=== PATIENT | female | born 1945 | race African-American/Black ===

== ENCOUNTER → 2016-10-30 | Outpatient (CLI) | payer MEDICARE, BC ==
[2015-03-22 18:30] VITALS: BP 153/81
[~2016-10-30] MED LIST: ACYC400T PO; ATOR10TA60 PO; CELE100C PO; DILT180C2 PO; DILT240C2 PO; GABA-585 PO; HYDR-2869 PO; LOSA1TAB18 PO; MULT-208 PO; NAPR500T3 PO; SENN8.6T99 PO; oscal
--- NOTE | 2016-10-30 14:01 | CARD ---
APPROVED REPORT EXAM: Two-dimensional and M-mode echocardiogram with Doppler and color Doppler. Other Information Quality : Average Rhythm : NSR INDICATION Peripheral Edema Cardiomegaly 2D DIMENSIONS Left Atrium(2D)3.9 (1.6-4.0cm)IVSd1.2 (0.7-1.1cm) Aortic Root(2D)2.9 (2.0-3.7cm)LVDd5.1 (3.9-5.9cm) LVOT Diameter2.1 (1.8-2.4cm)PWd1.3 (0.7-1.1cm) LVDs3.1 (2.5-4.0cm)FS (%) 39.3 % SV84.8 mlLVEF(%)69.5 (>50%) Aortic Valve AoV Peak Austin.146.2cm/sAoV VTI28.8cm AO Peak GR.8.5mmHgLVOT Peak Austin.95.3cm/s LVOT VTI 18.72cmAO Mean GR.4mmHg NILDA (VMAX)1.37fp5MXG (VTI)2.29cm2 Mitral Valve MV E Kimhvmgq37.2cm/sMV DECEL [id number] MV A Evcoemor31.3cm/sMV E Mean Gr.1mmHg MV YBE61qsQ/A Ratio0.6 MV A Baaougpb572emLGP (PHT)2.41cm2 TDI E/Lateral E'6.5E/Medial E'9.5 Pulmonary Valve PV Peak Txpuzobh066.7cm/sPV Peak Grad.4mmHg RVOT VTI17.8cm Tricuspid Valve TR P. Gwwaeejy739wc/sRAP XYNEIYCI9cwFi TR Peak Gr.67arYzCZUU48toUu LEFT VENTRICLE The left ventricle is normal size. There is borderline to mild concentric left ventricular hypertroph y. Left ventricle systolic function is normal. The Ejection Fraction is 65-70%. There is normal LV se gmental wall motion. Tissue Doppler imaging reveals mild left ventricular diastolic dysfunction. RIGHT VENTRICLE The right ventricle is normal size. The right ventricular systolic function is normal. ATRIA The left atrium size is normal. The right atrium size is normal. The interatrial septum is intact wit h no evidence for an atrial septal defect or patent foramen ovale as noted on 2-D or Doppler imaging. AORTIC VALVE The aortic valve is normal in structure and function. The aortic valve is trileaflet. Doppler and Col or Flow revealed no significant aortic regurgitation. There is no significant aortic valvular stenosi s. MITRAL VALVE The mitral valve is normal in structure and function. There is no mitral valve stenosis. Doppler and Color Flow revealed no mitral valve regurgitation noted. TRICUSPID VALVE The tricuspid valve is normal in structure and function. Doppler and Color Flow revealed trace to mil d tricuspid regurgitation. The PA pressure was estimated at 30 mmHg. There is no tricuspid valve sten osis. PULMONIC VALVE The pulmonic valve is not well visualized. Doppler and Color Flow revealed no pulmonic valvular regur gitation. There is no pulmonic valvular stenosis. GREAT VESSELS The aortic root is normal in size. Normal pulmonary venous flow (Doppler). The IVC is normal in size and collapses >50% with inspiration. PERICARDIAL EFFUSION There is no evidence of significant pericardial effusion. Critical Notification Critical Value: No <Conclusion> Left ventricle systolic function is normal. The Ejection Fraction is 65-70%. There is normal LV segmental wall motion. No significant valvular disease.
== END | disposition home or self-care (01) ==
LOC: ECHO 10:59
PROVIDERS: ATTEND Internal Medicine
DX: I51.7 Cardiomegaly (principal)
CPT/HCPCS: 93306

== ENCOUNTER → 2016-11-17 | Outpatient (CLI) | payer MEDICARE, BC ==
[2015-03-22 18:30] VITALS: BP 153/81
--- NOTE | 2016-11-18 09:57 | RAD ---
DATE: 11/17/2016 EXAM: DIGITAL SCREEN BILAT W/CAD HISTORY: Routine screening COMPARISON: 11/08/2015 This study was interpreted with the benefit of Computerized Aided Detection (CAD). FINDINGS: There are scattered fibroglandular densities in both breasts. No new or enlarging breast densities are seen. Minimal benign type calcification is present. No suspicious microcalcifications have developed. Benign-appearing lymph nodes are noted in the left axillary region. IMPRESSION: Stable mammograms without evidence of malignancy. BI-RADS CATEGORY: 2 BENIGN FINDING(S) RECOMMENDED FOLLOW-UP: 12M 12 MONTH FOLLOW-UP PQRS compliance statement: Patient information was entered into a reminder system with a target due date for the next mammogram. Mammography is a sensitive method for finding small breast cancers, but it does not detect them all and is not a substitute for careful clinical examination. A negative mammogram does not negate a clinically suspicious finding and should not result in delay in biopsying a clinically suspicious abnormality. "Our facility is accredited by the [employer] Mammography Program."
== END | disposition home or self-care (01) ==
LOC: MAMMO 13:15
PROVIDERS: ATTEND Internal Medicine
DX: Z12.31 Encounter for screening mammogram for malignant neoplasm of breast (principal)
CPT/HCPCS: G0202; 77067

== ENCOUNTER → 2016-11-18 | Outpatient (CLI) | payer MEDICARE, BC ==
[2015-03-22 18:30] VITALS: BP 153/81
--- NOTE | 2016-11-18 12:14 | RAD ---
Bilateral lower extremity venous ultrasound, 11/18/2016: History: Bilateral leg swelling Duplex evaluation of the deep veins in the lower extremities was performed including grayscale, color-flow and spectral Doppler analysis. The femoral and popliteal veins demonstrate normal compressibility and normal responses to distal augmentation maneuvers. Color imaging of those vessels shows no evidence of intraluminal clot. The deep veins in the calves were not adequately visualized in this large patient. IMPRESSION: There is no sonographic evidence of deep vein thrombosis in either lower extremity.
--- NOTE | 2016-11-18 12:18 | RAD ---
Bilateral lower extremity venous insufficiency ultrasound exam, 11/18/2016: History: Leg swelling Duplex evaluation of the greater and lesser saphenous veins in both lower extremities was performed. The greater and lesser saphenous veins are patent bilaterally. No significant reflux was identified in these vessels. IMPRESSION: No significant abnormality is detected.
== END | disposition home or self-care (01) ==
LOC: US 08:30
PROVIDERS: ATTEND Internal Medicine
DX: M79.89 Other specified soft tissue disorders (principal); M79.604 Pain in right leg; M79.605 Pain in left leg
CPT/HCPCS: 93970

== ENCOUNTER → 2017-05-06 | Outpatient (CLI) | payer MEDICARE, BC ==
[2015-03-22 18:30] VITALS: BP 153/81
--- NOTE | 2017-05-06 16:44 | RAD ---
Lateral lumbar spine with flexion and extension, 3 views, 05/06/2017: History: Spondylolisthesis, left leg numbness Standing lateral views of the lumbar spine were obtained in flexion, neutral and extension. The bony structures are demineralized. The vertebral heights are well-maintained. There are mild scattered marginal spurs. There are moderate degenerative changes involving the facet joints throughout the lumbar spine. There is a grade 1 spondylolisthesis at L4-5. There is approximately 7 to 8 mm of anterior subluxation of L4 relative to L5 which does not appear to change significantly on flexion and extension. There is a lesser degree of spondylolisthesis at L3-4 which also shows no significant instability with flexion and extension. No other abnormality is seen on this limited exam.
== END | disposition home or self-care (01) ==
LOC: RAD 12:19
PROVIDERS: ATTEND Neurological Surgery
DX: M43.16 Spondylolisthesis, lumbar region (principal)
CPT/HCPCS: 72120

== ENCOUNTER 2017-07-31 16:00 | Emergency (ER) | payer MEDICARE, BC ==
[~2017-07-31] VITALS: Ht 167.6 cm; Wt 111.6 kg
[~2017-07-31 16:00] MED LIST changes: -LOSA1TAB18 PO; +LOSA1TAB25 PO; -NAPR500T3 PO; +NAPR500T4 PO
[2017-07-31 16:07] VITALS: BP 152/79
--- NOTE | 2017-07-31 16:39 | PHYS DOC ---
Past Medical History Past Medical History: Arthritis, High Cholesterol, Hypertension, Migraines Past Surgical History: Hysterectomy Alcohol Use: None Drug Use: None Adult General Chief Complaint Chief Complaint: OTHER COMPLAINTS [facility] Patient is a 72 year old presents the ED complaining of tailbone injury times one day. Patient states she was walking in the garage and slipped and fell on her bottom. Describes pain as sharp. Rates pain as 6 out of 10. States pain is worse with sitting. Complains of tailbone pain. Denies bowel/bladder changes or saddle anesthesia, head/neck injury, LOC, vision changes, chest pain, shortness of breath, symptoms prior to fall, nausea/vomiting or fever. Review of Systems Review of Systems Constitutional: Denies fever or chills [] Eyes: Denies change in visual acuity, redness, or eye pain [] HENT: Denies nasal congestion or sore throat [] Respiratory: Denies cough or shortness of breath [] Cardiovascular: No additional information not addressed in HPI [] GI: Denies abdominal pain, nausea, vomiting, bloody stools or diarrhea [] : Denies dysuria or hematuria [] Musculoskeletal: Denies back pain or joint pain. Complains of tailbone pain. [] Integument: Denies rash or skin lesions [] Neurologic: Denies headache, focal weakness or sensory changes [] Endocrine: Denies polyuria or polydipsia [] Allergies Allergies Allergies Coded Allergies Type Severity Reaction Last Updated Verified No Known Drug Allergies 03/22/15 No Physical Exam Physical Exam Constitutional: Well developed, well nourished, no acute distress, non-toxic appearance. [] HENT: Normocephalic, atraumatic, bilateral external ears normal, oropharynx moist, no oral exudates, nose normal. [] Eyes: PERRLA, EOMI, conjunctiva normal, no discharge. [] Neck: Normal range of motion, no tenderness, supple, no stridor. [] Cardiovascular:Heart rate regular rhythm, no murmur [] Lungs & Thorax: Bilateral breath sounds clear to auscultation [] Abdomen: Bowel sounds normal, soft, no tenderness, no masses, no pulsatile masses. [] Skin: Warm, dry, no erythema, no rash. [] Back: No tenderness, no CVA tenderness. MILD TAILBONE TENDERNESS. NO OVERLYING SKIN CHANGES. [] Extremities: No tenderness, no cyanosis, no clubbing, ROM intact, no edema. [] Neurologic: Alert and oriented X 3, normal motor function, normal sensory function, no focal deficits noted. [] Psychologic: Affect normal, judgement normal, mood normal. [] Current Patient Data Vital Signs Vital Signs Date Time Temp Pulse Resp B/P (MAP) Pulse Ox O2 Delivery O2 Flow Rate FiO2 07/31/17 16:07 98.1 76 20 95 Room Air 98.1 EKG EKG [] Radiology/Procedures Radiology/Procedures PROCEDURE: SACRUM & COCCYX 3V Three-view study of the sacrum and coccyx History: Fall and pain. Findings: No acute fracture or displacement or osteolytic process is seen. No diastases of either SI joint is seen. IMPRESSION: No acute fracture.[] Course & Med Decision Making Course & Med Decision Making Pertinent Labs and Imaging studies reviewed. (See chart for details) []X-ray negative for acute injury. Patient's pain improved. Discussed symptomatic treatment. Able to ambulate without pain. Discussed follow-up and reasons to return to the ED. Patient understands and agrees with plan. Dragon Disclaimer Dragon Disclaimer This electronic medical record was generated, in whole or in part, using a voice recognition dictation system. Departure Departure Impression: Primary Impression: Tailbone injury Disposition: 01 HOME, SELF-CARE Condition: IMPROVED Referrals: TETE GALAN MD (PCP) Patient Instructions: Tailbone Injury MARJORIE BHATTI Jul 31, 2017 16:39
--- NOTE | 2017-07-31 17:10 | RAD ---
Three-view study of the sacrum and coccyx History: Fall and pain. Findings: No acute fracture or displacement or osteolytic process is seen. No diastases of either SI joint is seen. IMPRESSION: No acute fracture.
== END 2017-07-31 17:18 | disposition home or self-care (01) ==
LOC: ER 16:00
DX: S39.92XA Unspecified injury of lower back, initial encounter (principal); I10 Essential (primary) hypertension; E78.00 Pure hypercholesterolemia, unspecified; G43.909 Migraine, unspecified, not intractable, without status migrainosus; M19.90 Unspecified osteoarthritis, unspecified site; W01.0XXA Fall on same level from slipping, tripping and stumbling without subsequent striking against object, initial encounter; Y93.01 Activity, walking, marching and hiking; Y92.59 Other trade areas as the place of occurrence of the external cause; Y99.8 Other external cause status
CPT/HCPCS: 72220; 99284

== ENCOUNTER → 2017-11-09 | Outpatient (CLI) | payer MEDICARE, BC | END | disposition home or self-care (01) | LOC: MRI 11:02 | DX: S46.012A Strain of muscle(s) and tendon(s) of the rotator cuff of left shoulder, initial encounter (principal); S43.082A Other subluxation of left shoulder joint, initial encounter; X58.XXXA Exposure to other specified factors, initial encounter; Y93.89 Activity, other specified; Y92.89 Other specified places as the place of occurrence of the external cause; Y99.8 Other external cause status | CPT/HCPCS: 73221 ==

== ENCOUNTER → 2017-12-28 | Outpatient (CLI) | payer MEDICARE, BC | END | disposition home or self-care (01) | LOC: KCIC MAMMO 11:44 | DX: Z12.31 Encounter for screening mammogram for malignant neoplasm of breast (principal); Z13.820 Encounter for screening for osteoporosis; M85.88 Other specified disorders of bone density and structure, other site; M81.0 Age-related osteoporosis without current pathological fracture; Z78.0 Asymptomatic menopausal state | CPT/HCPCS: 77067; 77080 ==

== ENCOUNTER 2018-03-07 11:08 | Emergency (ER) | payer MEDICARE, BC ==
[2018-03-07] MEDS ORDERED: ONDANSETRON ODT 4 MG TAB.RAPDIS. PO (11:45)
== END 2018-03-07 13:54 | disposition home or self-care (01) ==
LOC: ER 11:08
DX: S30.0XXA Contusion of lower back and pelvis, initial encounter (principal); S80.01XA Contusion of right knee, initial encounter; M17.11 Unilateral primary osteoarthritis, right knee; G43.909 Migraine, unspecified, not intractable, without status migrainosus; I10 Essential (primary) hypertension; E78.00 Pure hypercholesterolemia, unspecified; Z90.710 Acquired absence of both cervix and uterus; W18.39XA Other fall on same level, initial encounter; Y93.89 Activity, other specified; Y99.8 Other external cause status; Y92.89 Other specified places as the place of occurrence of the external cause
CPT/HCPCS: 72100; 73562; 99284

== ENCOUNTER → 2018-03-17 | Outpatient (CLI) | payer MEDICARE, BC | END | disposition home or self-care (01) | LOC: MRI 14:20 | DX: M43.16 Spondylolisthesis, lumbar region (principal); M51.36 Other intervertebral disc degeneration, lumbar region; M48.061 Spinal stenosis, lumbar region without neurogenic claudication | CPT/HCPCS: 72148 ==

== ENCOUNTER → 2018-04-20 | Outpatient (CLI) | payer MEDICARE, BC ==
[~2018-04-20] MED LIST changes: -ACYC400T PO; -ATOR10TA60 PO; -CELE100C PO; -DILT180C2 PO; -DILT240C2 PO; -GABA-585 PO; -HYDR-2869 PO; +IOHEXOL 180 MG/ML 10 ML VIAL.; +LIDOCAINE 1% PF 2 ML VIAL.; -LOSA1TAB25 PO; -MULT-208 PO; -NAPR500T4 PO; -SENN8.6T99 PO; +methylPREDNISolone ACETATE 40 MG/ML VIAL.; +methylPREDNISolone ACETATE 80 MG/ML VIAL.; -oscal
== END | disposition home or self-care (01) ==
LOC: PNCL 10:06
DX: M51.16 Intervertebral disc disorders with radiculopathy, lumbar region (principal); M48.061 Spinal stenosis, lumbar region without neurogenic claudication
CPT/HCPCS: 62323; J1030; J1040; Q9965

== ENCOUNTER → 2018-05-04 | Outpatient (CLI) | payer MEDICARE, BC | END | disposition home or self-care (01) | LOC: PNCL 09:45 | DX: M51.16 Intervertebral disc disorders with radiculopathy, lumbar region (principal); M48.061 Spinal stenosis, lumbar region without neurogenic claudication; M43.16 Spondylolisthesis, lumbar region; I10 Essential (primary) hypertension; G43.909 Migraine, unspecified, not intractable, without status migrainosus; E78.00 Pure hypercholesterolemia, unspecified; M17.11 Unilateral primary osteoarthritis, right knee; Z90.710 Acquired absence of both cervix and uterus | CPT/HCPCS: 62323; J1030; J1040; Q9965 ==

== ENCOUNTER → 2018-05-17 | Outpatient (CLI) | payer MEDICARE, BC ==
[~2018-05-17] MED LIST changes: -LIDOCAINE 1% PF 2 ML VIAL.; +LIDOCAINE 2% PF 2ML VIAL.
== END | disposition home or self-care (01) ==
LOC: PNCL 10:36
DX: M51.16 Intervertebral disc disorders with radiculopathy, lumbar region (principal); M48.061 Spinal stenosis, lumbar region without neurogenic claudication; I10 Essential (primary) hypertension; G43.909 Migraine, unspecified, not intractable, without status migrainosus; E78.00 Pure hypercholesterolemia, unspecified; M17.11 Unilateral primary osteoarthritis, right knee; M43.16 Spondylolisthesis, lumbar region; Z79.82 Long term (current) use of aspirin; Z79.899 Other long term (current) drug therapy; Z90.710 Acquired absence of both cervix and uterus
CPT/HCPCS: 62323; J1030; J1040; J2001; Q9965

== ENCOUNTER 2019-04-20 16:34 | Emergency (ER) | payer OTHER, MEDICARE, BC ==
[~2019-04-20] VITALS: Ht 167.6 cm; Wt 89.8 kg
[~2019-04-20 16:34] MED LIST changes: +ACYC400T PO; +ASPI81TA50 PO; +ATOR10TA60 PO; +CELE100C PO; +DICL100G18 TP; +DILT180C2 PO; +DILT240C2 PO; +FURO40TA4 PO; +GABA-585 PO; +GABA300C18 PO; +HYDR-2869 PO; -IOHEXOL 180 MG/ML 10 ML VIAL.; -LIDOCAINE 2% PF 2ML VIAL.; +LOSA100T14 PO; +LOSA1TAB25 PO; +MONT10TA49 PO; +MULT-208 PO; +NAPR-514 PO; +POTA20TA82 PO; +SENN8.6T99 PO; -methylPREDNISolone ACETATE 40 MG/ML VIAL.; -methylPREDNISolone ACETATE 80 MG/ML VIAL.; +oscal; +tylenol arthritis
[2019-04-20] MEDS ORDERED: ACETAMINOPHEN 325 MG TABLET. PO ONE (17:15)
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
[2019-04-20] MEDS ORDERED: ORPH100T PO (18:16)
[2019-04-20] MEDS ORDERED: HYDR-3164 PO (18:16)
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
[2019-04-20 18:29] VITALS: BP 160/88
== END 2019-04-20 18:29 | disposition home or self-care (01) ==
LOC: ER 16:34
DX: S16.1XXA Strain of muscle, fascia and tendon at neck level, initial encounter (principal); M19.90 Unspecified osteoarthritis, unspecified site; E78.00 Pure hypercholesterolemia, unspecified; I10 Essential (primary) hypertension; G43.909 Migraine, unspecified, not intractable, without status migrainosus; Z90.710 Acquired absence of both cervix and uterus; V43.52XA Car driver injured in collision with other type car in traffic accident, initial encounter; Y93.89 Activity, other specified; Y92.410 Unspecified street and highway as the place of occurrence of the external cause; Y99.8 Other external cause status
CPT/HCPCS: 70450; 72125; 99284

== ENCOUNTER → 2020-07-16 | Outpatient (CLI) | payer MEDICARE, BC ==
[~2020-07-16] MED LIST changes: -DICL100G18 TP; +DICL100G54 TP; +HYDR-3164 PO; +ORPH100T PO; +POTA20TA4 PO; -POTA20TA82 PO
--- NOTE | 2020-07-17 16:51 | RAD ---
BILATERAL SCREENING MAMMOGRAM, 3-D History: Routine screening. Comparison: 12/28/2017, 11/17/2016, 11/08/2015, 09/22/2014, 08/09/2013, 06/02/2012. Technique: MLO and CC digital tomosynthesis (3D) images obtained. Radiologist reviewed these images on dedicated workstation. Findings: Breast Tissue Density B : There are scattered areas of fibroglandular density. There are no dominant masses, suspicious microcalcifications, or architectural distortion. IMPRESSION: No mammographic evidence of malignancy. Recommend routine screening. BI-RADS category 1: Negative. The images were reviewed with computer-aided detection. Patient information is entered into reminder system with a target due date for the next screening mammogram. Mammography is the most sensitive method for finding small breast cancers, but it does not detect them all and is not a substitute for careful clinical examination. A negative mammogram does not negate a clinically suspicious finding and should not result in delay in biopsying a clinically suspicious abnormality. "Our facility is accredited by the [employer] Mammography Program." Electronically signed by: Wyatt Kuo MD (07/17/2020 4:48 PM) [facility]
== END | disposition home or self-care (01) ==
LOC: MAMMO 14:25
PROVIDERS: ATTEND Family Medicine
DX: Z12.31 Encounter for screening mammogram for malignant neoplasm of breast (principal)
CPT/HCPCS: 77063; 77067